=== PATIENT | female | born 1955 | race Caucasian/White ===

== ENCOUNTER 2022-09-16 08:18 | Day surgery (SDC) | payer MEDICARE ==
[~2022-09-16 08:18] MED LIST: CALCIUM 1,0001 EACH PO; DESV50 PO; DHEA25 MG PO; FISH1000; Multiple Vitam1 EAC1; VAGIFEM10 MCG PO; Vitamin D2000 UNIT PO; [UNRECOGNIZED DRUG - CODE] PO
[2022-09-16] MEDS ORDERED: Vitamin B-12100 MCG (09:21)
[2022-09-16] MEDS ORDERED: TRANSDERM-SCOP1 EA10 (09:21)
== END 2022-09-16 11:28 | disposition home or self-care (01) ==
DX: Z12.11 Encounter for screening for malignant neoplasm of colon (principal); Z80.0 Family history of malignant neoplasm of digestive organs; J45.909 Unspecified asthma, uncomplicated; F41.9 Anxiety disorder, unspecified; Z87.891 Personal history of nicotine dependence; Z79.899 Other long term (current) drug therapy